=== PATIENT | female | born 1950 | race African-American/Black ===

== ENCOUNTER 2020-03-22 10:18 | Inpatient (IN) ==
[2020-03-22] MEDS ORDERED: cefTRIAXone 1,000 MG in SODIUM CHLORIDE 0.9% 100 ML IV STA (11:10)
[2020-03-22] MEDS ORDERED: SODIUM CHLORIDE 0.9% 1,000 ML IV STA (11:10)
[2020-03-22] MEDS ORDERED: cefTRIAXone 1,000 MG in SYRINGE 1 EACH IV STA (11:13)
[2020-03-22 11:23] LABS: Basophils % 0.2 % (0.0-0.8); Eosinophils # 0.2 10*3/uL (0.0-0.87); Eosinophils % 1.7 % (0.00-10.9); Hematocrit 35.1 VOL% (35.7-47.0); Hemoglobin 12.6 GM/DL (12.0-16.0); Immature Granulocytes % 0.6 %; Immature Granulocytes Absolute 0.07 #; Lymphocytes # 0.8 10*3/uL (1.4-4.0); Lymphocytes % 6.3 % (21.3-54.2); Mean Corpuscular HGB Conc 35.9 GM/DL (32-36); Mean Platelet Volume 11.5 FL (9.6-12.0); Monocytes % 4.9 % (1.7-12.7); Neutrophils % 86.3 % (38.7-73.9); Platelet Count 170 T/CUMM (130-400); Red Cell Distribution Width 14.2 % (9.3-17.3); White Blood Count 12.1 T/CUMM (4-12)
[2020-03-22 11:42] LABS: Amorphous Crystals,Urine Occasional /HPF (Few); Bacteria,Urine Occasional /HPF (Few); Bilirubin,Urine Small mg/dL (Negative); Blood, Urine Small mg/dL (Negative); Glucose,Urine (UA) Negative (Negative); Granular Casts,Urine 8 /LPF (0-1); Hyaline Casts,Urine 8 /LPF (0-3); Ketones,Urine 20 mg/dL (Negative); Mucus,Urine Few /LPF (Occasional); Nitrite,Urine Negative (Negative); Protein,Urine 100 MG/DL; RBC,Urine 3 /HPF (0-4); Squamous Epithelial Cell,Urine Occasional /HPF (0-10); Urine Appearance CLOUDY (Clear); Urine Color Amber (Yellow); Urine Specific Gravity 1.023 (1.001-1.035)
[2020-03-22 11:43] LABS: Band Neutrophils 7 % (0-10); Eosinophils 4 % (0-10); Hypochromasia 1+; Lymphocytes 9 % (20-55); Segmented Neutrophils 73 % (50-85); Total Cells Counted 100
[2020-03-22 11:44] LABS: Microcytosis 1+
[2020-03-22 11:55] LABS: Albumin 2.5 G/DL (3.4-5.0); Calcium 8.8 MG/DL (8.5-10.1); Osmolality,Calculated 267.5 MOS/KG (273-304); Total Protein 8.1 G/DL (6.4-8.3)
[2020-03-22] MEDS ORDERED: GLUCAGON 1 MG VIAL IM PRN (14:57)
[2020-03-22] MEDS ORDERED: SODIUM CHLORIDE 0.9% 2,000 ML IV ONE (14:57)
[2020-03-22] MEDS ORDERED: DEXTROSE 50% 25 GM/50 ML VIAL IV PRN (14:57)
[2020-03-22] MEDS ORDERED: DOCUSATE SODIUM 100 MG CAPSULE PO PRN (14:57)
[2020-03-22] MEDS ORDERED: ONDANSETRON 4 MG/2 ML VIAL IV PRN (14:57)
[2020-03-22] MEDS ORDERED: ACETAMINOPHEN 500 MG TABLET PO STA (15:02)
[2020-03-22] MEDS ORDERED: ACETAMINOPHEN 500 MG TABLET ONE (15:03)
[2020-03-22] MEDS: PIPERACILLIN/TAZOBACTAM 3,375 MG in SODIUM CHLORIDE 0.9% 100 ML IV SCH (16:52)
[2020-03-22] MEDS ORDERED: SODIUM CHLORIDE 0.9% 3,050 ML IV ONE (17:50)
[2020-03-22 18:06] LABS: Basophils % 0.2 % (0.0-0.8); Eosinophils # 0.2 10*3/uL (0.0-0.87); Eosinophils % 1.5 % (0.00-10.9); Hematocrit 31.9 VOL% (35.7-47.0); Hemoglobin 11.4 GM/DL (12.0-16.0); Immature Granulocytes % 0.5 %; Immature Granulocytes Absolute 0.07 #; Lymphocytes # 0.7 10*3/uL (1.4-4.0); Lymphocytes % 5.7 % (21.3-54.2); Mean Corpuscular HGB Conc 35.7 GM/DL (32-36); Mean Platelet Volume 12.2 FL (9.6-12.0); Monocytes % 4.6 % (1.7-12.7); Neutrophils % 87.5 % (38.7-73.9); Platelet Count 147 T/CUMM (130-400); Red Blood Count 4.09 MC/CUMM (3.8-5.5); Red Cell Distribution Width 14.3 % (9.3-17.3); White Blood Count 12.9 T/CUMM (4-12)
[2020-03-22 18:35] LABS: Albumin 2.3 G/DL (3.4-5.0); Bilirubin,Total 1.7 MG/DL (0.2-1.0); Calcium 8.4 MG/DL (8.5-10.1); Osmolality,Calculated 273.1 MOS/KG (273-304); Total Protein 7.4 G/DL (6.4-8.3)
[2020-03-22 18:58] LABS: Band Neutrophils 4 % (0-10); Eosinophils 4 % (0-10); Lymphocytes 10 % (20-55); Segmented Neutrophils 80 % (50-85); Total Cells Counted 100
[2020-03-22 18:59] LABS: Burr Cells 1+; Microcytosis 1+
[2020-03-22 19:00] LABS: Platelet Estimate Decreased
[2020-03-22 19:02] LABS: Toxic Granulation 1+
[2020-03-22] MEDS: SODIUM CHLORIDE 0.9% 1,000 ML IV SCH ×2 (19:50→22:59)
[2020-03-22] MEDS: ENOXAPARIN 40 MG/0.4 ML SYRINGE SUBCUT SCH (21:19)
[2020-03-22] MEDS: ACETAMINOPHEN 325 MG TABLET PO PRN (21:19)
[2020-03-23] MEDS: PIPERACILLIN/TAZOBACTAM 3,375 MG in SODIUM CHLORIDE 0.9% 100 ML IV SCH ×3 (01:35→18:05)
[2020-03-23] MEDS: ACETAMINOPHEN 325 MG TABLET PO PRN ×3 (02:18→23:15)
[2020-03-23 02:28] LABS: Amorphous Crystals,Urine Few /HPF (Few); Bilirubin,Urine Negative (Negative); Blood, Urine Moderate mg/dL (Negative); Glucose,Urine (UA) Negative (Negative); Hyaline Casts,Urine 3 /LPF (0-3); Ketones,Urine 5 mg/dL (Negative); Mucus,Urine Occasional /LPF (Occasional); Nitrite,Urine Negative (Negative); Protein,Urine 100 MG/DL; RBC,Urine 6 /HPF (0-4); Squamous Epithelial Cell,Urine Occasional /HPF (0-10); Urine Appearance CLOUDY (Clear); Urine Color Amber (Yellow); Urine Urobilinogen < 2.0 EU/DL (0.2-1.0); WBC,Urine 1 /HPF (0-6)
[2020-03-23] MEDS: SODIUM CHLORIDE 0.9% 1,000 ML IV SCH ×5 (04:10→23:14)
[2020-03-23 05:48] LABS: Basophils % 0.3 % (0.0-0.8); Eosinophils # 0.3 10*3/uL (0.0-0.87); Eosinophils % 2.2 % (0.00-10.9); Hematocrit 32.4 VOL% (35.7-47.0); Hemoglobin 11.5 GM/DL (12.0-16.0); Immature Granulocytes % 1.8 %; Immature Granulocytes Absolute 0.23 #; Lymphocytes # 0.6 10*3/uL (1.4-4.0); Lymphocytes % 4.9 % (21.3-54.2); Mean Corpuscular HGB Conc 35.5 GM/DL (32-36); Mean Corpuscular Volume 78.3 FL (87-102); Mean Platelet Volume 12.2 FL (9.6-12.0); Monocytes % 2.2 % (1.7-12.7); Neutrophils % 88.6 % (38.7-73.9); Platelet Count 148 T/CUMM (130-400); Red Blood Count 4.14 MC/CUMM (3.8-5.5); Red Cell Distribution Width 14.4 % (9.3-17.3); White Blood Count 13.1 T/CUMM (4-12)
[2020-03-23 06:02] LABS: Calcium 8.3 MG/DL (8.5-10.1)
[2020-03-23 06:12] LABS: Bilirubin,Total 2.1 MG/DL (0.2-1.0); Calcium 8.2 MG/DL (8.5-10.1); Osmolality,Calculated 277.7 MOS/KG (273-304); Risk Ratio 5.56; Thyroid Stimulating Hormone 0.925 uIU/ml (0.358-3.74); Total Protein 6.9 G/DL (6.4-8.3); VLDL CHOLESTEROL 23.4 MG/DL
[2020-03-23 06:23] LABS: Band Neutrophils 7 % (0-10); Eosinophils 8 % (0-10); Hypochromasia 1+; Lymphocytes 8 % (20-55); Microcytosis 1+; Segmented Neutrophils 73 % (50-85); Total Cells Counted 100
[2020-03-23 06:24] LABS: Burr Cells Few; Ovalocytes Slight; Platelet Estimate Adequate
[2020-03-23] MEDS ORDERED: MAGNESIUM SULF RIDER 4 GM in PREMIX 1 EACH IV PRN (07:00)
[2020-03-23] MEDS: PANTOPRAZOLE 40 MG TABLET PO SCH (09:39)
[2020-03-23] MEDS: POTASSIUM CHLORIDE 20 MEQ TABLET PO PRN ×3 (09:39→14:35)
[2020-03-23] MEDS: ASCORBIC ACID 500 MG TABLET PO SCH (09:39)
[2020-03-23] MEDS: MAGNESIUM SULF RIDER 2 GM in PREMIX 1 EACH IV PRN (09:39)
[2020-03-23] MEDS ORDERED: methylPREDNISolone SOD SUC 125 MG/2 ML VIAL IV ONE (10:11)
[2020-03-23] MEDS: PHENOL 1.4% THROAT SPRAY 177 ML BOTTLE PO PRN (14:36)
[2020-03-23] MEDS: ENOXAPARIN 40 MG/0.4 ML SYRINGE SUBCUT SCH (23:17)
[2020-03-24] MEDS: PIPERACILLIN/TAZOBACTAM 3,375 MG in SODIUM CHLORIDE 0.9% 100 ML IV SCH (03:00)
[2020-03-24] MEDS: PHENOL 1.4% THROAT SPRAY 177 ML BOTTLE PO PRN (06:09)
[2020-03-24 06:51] LABS: Basophils # 0.1 10*3/uL (0.0-0.2); Basophils % 0.3 % (0.0-0.8); Eosinophils % 0.1 % (0.00-10.9); Hematocrit 36.7 VOL% (35.7-47.0); Hemoglobin 12.9 GM/DL (12.0-16.0); Immature Granulocytes Absolute 1.26 #; Lymphocytes # 0.8 10*3/uL (1.4-4.0); Lymphocytes % 3.6 % (21.3-54.2); Mean Corpuscular HGB Conc 35.1 GM/DL (32-36); Mean Corpuscular Volume 78.8 FL (87-102); Mean Platelet Volume 12.5 FL (9.6-12.0); Monocytes % 1.6 % (1.7-12.7); Neutrophils % 88.4 % (38.7-73.9); Platelet Count 192 T/CUMM (130-400); Red Blood Count 4.66 MC/CUMM (3.8-5.5); White Blood Count 21.1 T/CUMM (4-12)
[2020-03-24 07:19] LABS: Calcium 9.2 MG/DL (8.5-10.1); Osmolality,Calculated 289.4 MOS/KG (273-304); Total Protein 7.8 G/DL (6.4-8.3)
[2020-03-24 07:48] LABS: Calcium 8.7 MG/DL (8.5-10.1); Osmolality,Calculated 293.1 MOS/KG (273-304)
[2020-03-24] MEDS ORDERED: FUROSEMIDE 20 MG/2 ML VIAL IV ONE (07:56)
[2020-03-24] MEDS ORDERED: SODIUM POLYSTYRENE SULFATE 15 GM/60 ML BOTTLE PO STA (08:08)
[2020-03-24 08:29] LABS: ABG HCO3 15.1 MMOL/L (20-26); ABG Oxygen Saturation 95.3 % (95-100); ABG PCO2 22.4 MM HG (35-48); ABG PH 7.344 (7.35-7.45); ABG PO2 81.8 MM HG (80-95); ABG TCO2 10.8 MMOL/L (23-27)
[2020-03-24 08:30] LABS: Allen Test Positive
[2020-03-24] MEDS: SODIUM CHLORIDE 0.9% 1,000 ML IV SCH ×4 (08:54→18:36)
[2020-03-24 09:09] LABS: Band Neutrophils 10 % (0-10); Lymphocytes 3 % (20-55); Nucleated Red Blood Cells 1 (0-5); Platelet Estimate Normal; Segmented Neutrophils 86 % (50-85); Total Cells Counted 100
[2020-03-24 09:10] LABS: Acanthocytes 2+; Anisocytosis 1+; Hypochromasia 1+; Microcytosis 1+; Ovalocytes Few; Target Cells 1+
[2020-03-24] MEDS: PANTOPRAZOLE 40 MG TABLET PO SCH (09:10)
[2020-03-24] MEDS: ASCORBIC ACID 500 MG TABLET PO SCH (09:10)
[2020-03-24] MEDS ORDERED: SODIUM CHLORIDE 0.9% 500 ML IV ONE ×2 (09:25→12:55)
[2020-03-24] MEDS: MEROPENEM 500 MG in SODIUM CHLORIDE 0.9% 100 ML IV SCH ×3 (10:41→18:44)
[2020-03-24] MEDS: ACETAMINOPHEN 325 MG TABLET PO PRN (13:35)
[2020-03-24] MEDS: SODIUM BICARB INJ 100 MEQ in DEXTROSE 5% 1,000 ML IV SCH ×2 (14:17→20:47)
[2020-03-24 14:50] LABS: Calcium 8.9 MG/DL (8.5-10.1); Osmolality,Calculated 288.5 MOS/KG (273-304)
[2020-03-24] MEDS: MORPHINE 4 MG/1 ML VIAL IV PRN (15:12)
[2020-03-24] MEDS ORDERED: SODIUM CHLORIDE 0.9% 250 ML IV ONE (15:59)
[2020-03-24] MEDS ORDERED: SODIUM CHLORIDE 0.9% 1,000 ML IV ONE ×2 (17:08→23:01)
[2020-03-24] MEDS ORDERED: SODIUM BICARBONATE 50 MEQ/50 ML VIAL IV ONE ×2 (17:08→17:09)
[2020-03-24] MEDS ORDERED: NOREPINEPHRINE 4 MG/4 ML VIAL IV ONE (17:18)
[2020-03-24] MEDS: NOREPINEPHRINE 8 MG in SODIUM CHLORIDE 0.9% 242 ML IV PRN ×2 (17:25→22:20)
[2020-03-24 17:57] LABS: Calcium 8.2 MG/DL (8.5-10.1); Osmolality,Calculated 298.1 MOS/KG (273-304)
[2020-03-24] MEDS ORDERED: VANCOMYCIN INJ 1,500 MG in SODIUM CHLORIDE 0.9% 500 ML IV SCH (18:00)
[2020-03-24] MEDS: ENOXAPARIN 40 MG/0.4 ML SYRINGE SUBCUT SCH (20:46)
[2020-03-24] MEDS ORDERED: PHENYLEPHRINE DRIP 40 MG/250 ML PREMIX IV PRN (23:02)
[2020-03-25 00:54] LABS: Basophils # 0.1 10*3/uL (0.0-0.2); Basophils % 0.4 % (0.0-0.8); Eosinophils % 0.1 % (0.00-10.9); Hematocrit 33.4 VOL% (35.7-47.0); Hemoglobin 11.6 GM/DL (12.0-16.0); Immature Granulocytes % 1.8 %; Immature Granulocytes Absolute 0.59 #; Lymphocytes # 1.9 10*3/uL (1.4-4.0); Lymphocytes % 5.6 % (21.3-54.2); Mean Corpuscular HGB Conc 34.7 GM/DL (32-36); Mean Corpuscular Volume 80.1 FL (87-102); Mean Platelet Volume 12.6 FL (9.6-12.0); Monocytes % 2.8 % (1.7-12.7); NRBC # 0.15 10*3/uL; Neutrophils % 89.3 % (38.7-73.9); Platelet Count 220 T/CUMM (130-400); Red Blood Count 4.17 MC/CUMM (3.8-5.5); Red Cell Distribution Width 15.8 % (9.3-17.3); White Blood Count 33.1 T/CUMM (4-12)
[2020-03-25 01:14] LABS: Albumin 1.8 G/DL (3.4-5.0); Bilirubin,Total 0.9 MG/DL (0.2-1.0); Total Protein 7.1 G/DL (6.4-8.3)
[2020-03-25 01:21] LABS: Calcium 8.2 MG/DL (8.5-10.1); Osmolality,Calculated 295.4 MOS/KG (273-304)
[2020-03-25] MEDS: MEROPENEM 500 MG in SODIUM CHLORIDE 0.9% 100 ML IV SCH ×3 (01:45→17:06)
[2020-03-25] MEDS: NOREPINEPHRINE 8 MG in SODIUM CHLORIDE 0.9% 242 ML IV PRN ×5 (01:57→18:30)
[2020-03-25 03:00] LABS: Band Neutrophils 7 % (0-10); Lymphocytes 2 % (20-55); Platelet Estimate Normal; Segmented Neutrophils 89 % (50-85); Total Cells Counted 100
[2020-03-25 03:01] LABS: Microcytosis 1+; Polychromasia Slight; Target Cells Few
[2020-03-25 03:02] LABS: Burr Cells 1+
[2020-03-25 03:03] LABS: Hypochromasia Slight
[2020-03-25] MEDS: SODIUM BICARB INJ 100 MEQ in DEXTROSE 5% 1,000 ML IV SCH ×3 (05:05→21:30)
[2020-03-25] MEDS: SODIUM CHLORIDE 0.9% 1,000 ML IV SCH ×3 (07:40→20:55)
[2020-03-25] MEDS ORDERED: ETOMIDATE 20 MG/10 ML VIAL IV ONE ×2 (08:05→08:10)
[2020-03-25] MEDS ORDERED: SUCCINYLCHOLINE 200 MG/10 ML VIAL ONE (08:06)
[2020-03-25] MEDS ORDERED: SUCCINYLCHOLINE 200 MG/10 ML VIAL IV ONE (08:13)
[2020-03-25] MEDS ORDERED: MIDAZOLAM 10 MG/2 ML VIAL ONE ×2 (08:27→09:05)
[2020-03-25] MEDS ORDERED: MIDAZOLAM 10 MG/2 ML VIAL IV ONE (08:35)
[2020-03-25] MEDS: PANTOPRAZOLE 40 MG TABLET PO SCH (08:38)
[2020-03-25] MEDS: ASCORBIC ACID 500 MG TABLET PO SCH (08:38)
[2020-03-25 10:06] LABS: ABG Base Excess -11.3 MMOL/L (-2.5-2.5); ABG HCO3 15.6 MMOL/L (20-26); ABG Oxygen Saturation 99.6 % (95-100); ABG PH 7.295 (7.35-7.45); ABG TCO2 12.7 MMOL/L (23-27)
[2020-03-25] MEDS ORDERED: SODIUM CHLORIDE 0.9% 2,000 ML IV ONE (11:10)
[2020-03-25] MEDS: HYDROCORTISONE 100 MG VIAL IV SCH ×2 (12:35→21:40)
[2020-03-25 15:51] LABS: ABG Base Excess -11.2 MMOL/L (-2.5-2.5); ABG HCO3 15.6 MMOL/L (20-26); ABG Oxygen Saturation 99.5 % (95-100); ABG PH 7.411 (7.35-7.45); ABG TCO2 11.1 MMOL/L (23-27)
[2020-03-25] MEDS ORDERED: SODIUM CHLORIDE 0.9% 500 ML IV ONE (18:21)
[2020-03-25] MEDS: ENOXAPARIN 40 MG/0.4 ML SYRINGE SUBCUT SCH (21:41)
[2020-03-26] MEDS: NOREPINEPHRINE 8 MG in SODIUM CHLORIDE 0.9% 242 ML IV PRN ×4 (00:05→21:52)
[2020-03-26 00:16] LABS: CKMB % 10.6 %
[2020-03-26 00:17] LABS: Troponin I 10.8 NG/ML (0.00-0.045)
[2020-03-26] MEDS: MORPHINE 4 MG/1 ML VIAL IV PRN ×2 (00:34→12:57)
[2020-03-26] MEDS ORDERED: ENOXAPARIN 80 MG/0.8 ML SYRINGE SUBCUT ONE (01:00)
[2020-03-26] MEDS: MEROPENEM 500 MG in SODIUM CHLORIDE 0.9% 100 ML IV SCH ×3 (01:36→17:50)
[2020-03-26 02:51] LABS: Troponin I 17.9 NG/ML (0.00-0.045)
[2020-03-26] MEDS: SODIUM BICARB INJ 100 MEQ in DEXTROSE 5% 1,000 ML IV SCH ×2 (02:53→13:40)
[2020-03-26 05:14] LABS: ABG Base Excess -7.4 MMOL/L (-2.5-2.5); ABG HCO3 18.5 MMOL/L (20-26); ABG Oxygen Saturation 99.4 % (95-100); ABG PH 7.505 (7.35-7.45); ABG TCO2 11.7 MMOL/L (23-27)
[2020-03-26 05:15] LABS: ABG PCO2 17.2 MM HG (35-48)
[2020-03-26] MEDS: SODIUM CHLORIDE 0.9% 1,000 ML IV SCH ×3 (05:15→22:30)
[2020-03-26 05:20] LABS: Basophils # 0.1 10*3/uL (0.0-0.2); Basophils % 0.3 % (0.0-0.8); Eosinophils # 0.1 10*3/uL (0.0-0.87); Eosinophils % 0.4 % (0.00-10.9); Immature Granulocytes % 4.2 %; Immature Granulocytes Absolute 1.09 #; Lymphocytes # 1.5 10*3/uL (1.4-4.0); Lymphocytes % 5.7 % (21.3-54.2); Mean Corpuscular HGB Conc 36.9 GM/DL (32-36); Mean Corpuscular Volume 74.3 FL (87-102); Mean Platelet Volume 12.5 FL (9.6-12.0); Monocytes % 1.2 % (1.7-12.7); NRBC # 0.33 10*3/uL; Neutrophils % 88.2 % (38.7-73.9); Platelet Count 202 T/CUMM (130-400); Red Cell Distribution Width 14.3 % (9.3-17.3); White Blood Count 25.8 T/CUMM (4-12)
[2020-03-26 05:29] LABS: Hemoglobin 9.6 GM/DL (12.0-16.0)
[2020-03-26] MEDS: HYDROCORTISONE 100 MG VIAL IV SCH ×3 (05:40→22:00)
[2020-03-26 05:44] LABS: CKMB % 10.1 %
[2020-03-26 05:45] LABS: Troponin I 20.9 NG/ML (0.00-0.045)
[2020-03-26 05:51] LABS: Burr Cells Slight; Eosinophils 1 % (0-10); Hypochromasia 1+; Lymphocytes 8 % (20-55); Nucleated Red Blood Cells 2 (0-5); Ovalocytes Slight; Platelet Estimate Adequate; Segmented Neutrophils 88 % (50-85); Total Cells Counted 100
[2020-03-26 05:52] LABS: Microcytosis 1+
[2020-03-26 05:53] LABS: Albumin 1.4 G/DL (3.4-5.0); Bilirubin,Direct 1.16 MG/DL (0.0-0.20); Bilirubin,Indirect 0.3 MG/DL (0.0-1.0); Bilirubin,Total 1.5 MG/DL (0.2-1.0); Calcium 7.9 MG/DL (8.5-10.1); Osmolality,Calculated 308.8 MOS/KG (273-304); Total Protein 6.1 G/DL (6.4-8.3)
[2020-03-26] MEDS: ENOXAPARIN 120 MG/0.8 ML SYRINGE SUBCUT SCH ×2 (08:55→22:00)
[2020-03-26] MEDS: LEVOFLOXACIN INJ 750 MG in PREMIX 1 EACH IV SCH (08:55)
[2020-03-26] MEDS: ASCORBIC ACID 500 MG TABLET PO SCH (08:55)
[2020-03-26] MEDS: PANTOPRAZOLE 40 MG VIAL IV SCH (08:55)
[2020-03-26 08:57] LABS: CKMB % 9.5 %
[2020-03-26 09:05] LABS: Troponin I 22.5 NG/ML (0.00-0.045)
[2020-03-26] MEDS: POTASSIUM CHLORIDE 20 MEQ/15 ML UDCUP NG SCH ×3 (09:22→13:30)
[2020-03-26] MEDS ORDERED: MAGNESIUM SULF RIDER 2 GM in PREMIX 1 EACH IV PRN (17:37)
[2020-03-26] MEDS ORDERED: POTASSIUM CHLORIDE RIDER 10 MEQ in PREMIX 1 EACH IV PRN (17:37)
[2020-03-27] MEDS: SODIUM BICARB INJ 100 MEQ in DEXTROSE 5% 1,000 ML IV SCH ×3 (00:02→11:02)
[2020-03-27 04:11] LABS: ABG Base Excess -7.5 MMOL/L (-2.5-2.5); ABG HCO3 13.4 MMOL/L (20-26); ABG Oxygen Saturation 98.2 % (95-100); ABG PH 7.521 (7.35-7.45); ABG TCO2 13.9 MMOL/L (23-27)
[2020-03-27 04:14] LABS: Basophils # 0.1 10*3/uL (0.0-0.2); Basophils % 0.3 % (0.0-0.8); Eosinophils # 0.1 10*3/uL (0.0-0.87); Eosinophils % 0.3 % (0.00-10.9); Hematocrit 25.6 VOL% (35.7-47.0); Hemoglobin 9.7 GM/DL (12.0-16.0); Immature Granulocytes % 8.9 %; Lymphocytes # 2.1 10*3/uL (1.4-4.0); Lymphocytes % 8.8 % (21.3-54.2); Mean Corpuscular HGB Conc 37.9 GM/DL (32-36); Mean Corpuscular Volume 74.4 FL (87-102); Mean Platelet Volume 12.7 FL (9.6-12.0); Monocytes % 1.4 % (1.7-12.7); NRBC # 0.68 10*3/uL; Neutrophils % 80.3 % (38.7-73.9); Platelet Count 166 T/CUMM (130-400); Red Blood Count 3.44 MC/CUMM (3.8-5.5); Red Cell Distribution Width 14.6 % (9.3-17.3); White Blood Count 23.5 T/CUMM (4-12)
[2020-03-27 04:20] LABS: Calcium 7.5 MG/DL (8.5-10.1); Osmolality,Calculated 315.8 MOS/KG (273-304)
[2020-03-27] MEDS: MEROPENEM 500 MG in SODIUM CHLORIDE 0.9% 100 ML IV SCH ×3 (04:30→19:21)
[2020-03-27 04:36] LABS: ABG PCO2 16.7 MM HG (35-48)
[2020-03-27] MEDS: HYDROCORTISONE 100 MG VIAL IV SCH ×3 (04:38→21:50)
[2020-03-27 04:41] LABS: Band Neutrophils 5 % (0-10); Burr Cells Slight; Hypochromasia Slight; Lymphocytes 5 % (20-55); Microcytosis 1+; Nucleated Red Blood Cells 9 (0-5); Ovalocytes Slight; Platelet Estimate Adequate; Segmented Neutrophils 88 % (50-85); Total Cells Counted 100
[2020-03-27] MEDS: NOREPINEPHRINE 8 MG in SODIUM CHLORIDE 0.9% 242 ML IV PRN ×3 (06:15→21:00)
[2020-03-27] MEDS: SODIUM CHLORIDE 0.9% 1,000 ML IV SCH ×3 (06:30→23:32)
[2020-03-27] MEDS ORDERED: ENOXAPARIN 120 MG/0.8 ML SYRINGE SUBCUT SCH (09:00)
[2020-03-27 09:22] LABS: CKMB % 5.5 %
[2020-03-27 09:23] LABS: Troponin I 6.67 NG/ML (0.00-0.045)
[2020-03-27] MEDS: LEVOFLOXACIN INJ 750 MG in PREMIX 1 EACH IV SCH (10:10)
[2020-03-27] MEDS: ASPIRIN CHEW 81 MG TABLET PO SCH (10:10)
[2020-03-27] MEDS: PANTOPRAZOLE 40 MG VIAL IV SCH (10:11)
[2020-03-27] MEDS: ASCORBIC ACID 500 MG TABLET PO SCH (10:12)
[2020-03-27] MEDS ORDERED: INSULIN GLARGINE 100 UNIT/ML SUBCUT SCH (12:00)
[2020-03-27] MEDS ORDERED: VERAPAMIL 5 MG/2 ML VIAL ONE (12:35)
[2020-03-27] MEDS ORDERED: NITROGLYCERIN DRIP 50 MG/250 ML BOTTLE IV ONE (12:35)
[2020-03-27] MEDS ORDERED: NOREPINEPHRINE 4 MG/4 ML VIAL IV ONE (13:23)
[2020-03-27] MEDS: INSULIN LISPRO 100 UNIT/ML SUBCUT SCH ×3 (14:00→19:29)
[2020-03-27] MEDS ORDERED: CLOPIDOGREL 300 MG TABLET PO ONE (14:33)
[2020-03-28] MEDS: INSULIN LISPRO 100 UNIT/ML SUBCUT SCH ×6 (01:26→20:23)
[2020-03-28] MEDS: MEROPENEM 500 MG in SODIUM CHLORIDE 0.9% 100 ML IV SCH ×3 (01:34→17:01)
[2020-03-28] MEDS: NOREPINEPHRINE 8 MG in SODIUM CHLORIDE 0.9% 242 ML IV PRN ×3 (03:20→18:58)
[2020-03-28 05:01] LABS: ABG Base Excess -4.7 MMOL/L (-2.5-2.5); ABG PO2 150.4 MM HG (80-95); ABG TCO2 16.6 MMOL/L (23-27)
[2020-03-28 05:05] LABS: ABG PCO2 19.2 MM HG (35-48)
[2020-03-28] MEDS: SODIUM BICARB INJ 100 MEQ in DEXTROSE 5% 1,000 ML IV SCH (05:07)
[2020-03-28 05:28] LABS: Calcium 7.5 MG/DL (8.5-10.1); Osmolality,Calculated 312.8 MOS/KG (273-304)
[2020-03-28 05:31] LABS: Basophils # 0.2 10*3/uL (0.0-0.2); Basophils % 0.6 % (0.0-0.8); Eosinophils # 0.1 10*3/uL (0.0-0.87); Eosinophils % 0.3 % (0.00-10.9); Immature Granulocytes % 12.1 %; Immature Granulocytes Absolute 3.25 #; Lymphocytes # 1.9 10*3/uL (1.4-4.0); Lymphocytes % 7.1 % (21.3-54.2); Mean Corpuscular HGB Conc 38.8 GM/DL (32-36); Mean Corpuscular Volume 73.4 FL (87-102); Mean Platelet Volume 12.3 FL (9.6-12.0); Monocytes % 1.9 % (1.7-12.7); NRBC # 1.55 10*3/uL; Platelet Count 142 T/CUMM (130-400); Red Blood Count 3.54 MC/CUMM (3.8-5.5); Red Cell Distribution Width 14.1 % (9.3-17.3); White Blood Count 26.9 T/CUMM (4-12)
[2020-03-28 05:33] LABS: Hemoglobin 10.1 GM/DL (12.0-16.0)
[2020-03-28] MEDS: HYDROCORTISONE 100 MG VIAL IV SCH ×3 (06:00→20:23)
[2020-03-28 06:19] LABS: Eosinophils 1 % (0-10); Lymphocytes 3 % (20-55); Total Cells Counted 100
[2020-03-28 06:20] LABS: Anisocytosis 1+; Band Neutrophils 3 % (0-10); Hypochromasia 3+; Macrocytosis 1+; Metamyelocytes 3 %; Myelocytes 1 %; Nucleated Red Blood Cells 9 (0-5); Platelet Estimate Adequate; Segmented Neutrophils 84 % (50-85); Target Cells 1+
[2020-03-28] MEDS ORDERED: FUROSEMIDE 40 MG/4 ML VIAL IV ONE (07:26)
[2020-03-28] MEDS ORDERED: INSULIN GLARGINE 100 UNIT/ML SUBCUT SCH (09:00)
[2020-03-28] MEDS: ENOXAPARIN 40 MG/0.4 ML SYRINGE SUBCUT SCH (09:10)
[2020-03-28] MEDS: PANTOPRAZOLE 40 MG VIAL IV SCH (09:10)
[2020-03-28] MEDS: LEVOFLOXACIN INJ 750 MG in PREMIX 1 EACH IV SCH (09:12)
[2020-03-28] MEDS: ASPIRIN CHEW 81 MG TABLET PO SCH (09:12)
[2020-03-28] MEDS: ASCORBIC ACID 500 MG TABLET PO SCH (09:12)
[2020-03-28] MEDS: CLOPIDOGREL 75 MG TABLET PO SCH (09:12)
[2020-03-28] MEDS ORDERED: INSULIN GLARGINE 100 UNIT/ML SUBCUT ONE (09:38)
[2020-03-28] MEDS: POTASSIUM CHLORIDE 20 MEQ/15 ML UDCUP PER TUBE SCH ×2 (16:52→20:23)
[2020-03-28] MEDS: FUROSEMIDE 40 MG/4 ML VIAL IV SCH (16:52)
[2020-03-29] MEDS: INSULIN LISPRO 100 UNIT/ML SUBCUT SCH ×6 (00:34→20:45)
[2020-03-29] MEDS: POTASSIUM CHLORIDE 20 MEQ/15 ML UDCUP PER TUBE SCH (00:35)
[2020-03-29] MEDS: MEROPENEM 500 MG in SODIUM CHLORIDE 0.9% 100 ML IV SCH ×3 (01:27→18:07)
[2020-03-29] MEDS: HYDROCORTISONE 100 MG VIAL IV SCH ×3 (04:48→20:45)
[2020-03-29 04:58] LABS: ABG Base Excess -0.1 MMOL/L (-2.5-2.5); ABG Oxygen Saturation 97.4 % (95-100); ABG PCO2 27.7 MM HG (35-48); ABG PH 7.518 (7.35-7.45); ABG TCO2 22.9 MMOL/L (23-27)
[2020-03-29 05:14] LABS: Basophils # 0.1 10*3/uL (0.0-0.2); Basophils % 0.4 % (0.0-0.8); Eosinophils # 0.1 10*3/uL (0.0-0.87); Eosinophils % 0.4 % (0.00-10.9); Hematocrit 26.8 VOL% (35.7-47.0); Hemoglobin 10.1 GM/DL (12.0-16.0); Immature Granulocytes % 9.1 %; Immature Granulocytes Absolute 2.87 #; Lymphocytes # 1.8 10*3/uL (1.4-4.0); Lymphocytes % 5.7 % (21.3-54.2); Mean Corpuscular HGB Conc 37.7 GM/DL (32-36); Mean Corpuscular Volume 74.9 FL (87-102); Mean Platelet Volume 12.1 FL (9.6-12.0); Monocytes % 1.7 % (1.7-12.7); NRBC # 2.28 10*3/uL; Neutrophils % 82.7 % (38.7-73.9); Platelet Count 158 T/CUMM (130-400); Red Blood Count 3.58 MC/CUMM (3.8-5.5); Red Cell Distribution Width 13.8 % (9.3-17.3); White Blood Count 31.4 T/CUMM (4-12)
[2020-03-29 05:33] LABS: Calcium 7.6 MG/DL (8.5-10.1); Osmolality,Calculated 318.9 MOS/KG (273-304)
[2020-03-29 05:42] LABS: Troponin I 2.32 NG/ML (0.00-0.045)
[2020-03-29 05:52] LABS: Band Neutrophils 1 % (0-10); Hypochromasia 1+; Lymphocytes 7 % (20-55); Metamyelocytes 1 %; Nucleated Red Blood Cells 7 (0-5); Segmented Neutrophils 90 % (50-85); Smudge Cells Few; Total Cells Counted 100
[2020-03-29 05:53] LABS: Microcytosis 1+; Ovalocytes Slight; Polychromasia Slight; Target Cells 1+
[2020-03-29 05:54] LABS: Platelet Estimate Adequate
[2020-03-29] MEDS: ENOXAPARIN 40 MG/0.4 ML SYRINGE SUBCUT SCH (08:08)
[2020-03-29] MEDS: INSULIN GLARGINE 100 UNIT/ML SUBCUT SCH (08:09)
[2020-03-29] MEDS: FUROSEMIDE 40 MG/4 ML VIAL IV SCH ×2 (08:09→16:15)
[2020-03-29] MEDS: CLOPIDOGREL 75 MG TABLET PO SCH (08:10)
[2020-03-29] MEDS: ASCORBIC ACID 500 MG TABLET PO SCH (08:10)
[2020-03-29] MEDS: LEVOFLOXACIN INJ 750 MG in PREMIX 1 EACH IV SCH (08:10)
[2020-03-29] MEDS: ASPIRIN CHEW 81 MG TABLET PO SCH (08:10)
[2020-03-29] MEDS: PANTOPRAZOLE 40 MG VIAL IV SCH (08:11)
[2020-03-29] MEDS: NOREPINEPHRINE 8 MG in SODIUM CHLORIDE 0.9% 242 ML IV PRN ×2 (09:08→20:47)
[2020-03-29] MEDS: DEXMEDETOMIDINE 200 MCG in SODIUM CHLORIDE 0.9% 48 ML IV PRN ×2 (12:10→17:27)
[2020-03-29] MEDS ORDERED: DEXMEDETOMIDINE 400 MCG in SODIUM CHLORIDE 0.9% 96 ML IV PRN (16:11)
[2020-03-30] MEDS: INSULIN LISPRO 100 UNIT/ML SUBCUT SCH ×6 (00:45→20:29)
[2020-03-30] MEDS: MEROPENEM 500 MG in SODIUM CHLORIDE 0.9% 100 ML IV SCH ×3 (01:07→17:45)
[2020-03-30] MEDS: DEXMEDETOMIDINE 200 MCG in SODIUM CHLORIDE 0.9% 48 ML IV PRN ×2 (01:40→04:15)
[2020-03-30] MEDS: HYDROCORTISONE 100 MG VIAL IV SCH ×3 (04:55→20:30)
[2020-03-30 04:57] LABS: ABG Base Excess 2.8 MMOL/L (-2.5-2.5); ABG HCO3 26.9 MMOL/L (20-26); ABG Oxygen Saturation 98.7 % (95-100); ABG PCO2 32.1 MM HG (35-48); ABG PH 7.509 (7.35-7.45); ABG TCO2 23.5 MMOL/L (23-27)
[2020-03-30 05:11] LABS: Basophils # 0.1 10*3/uL (0.0-0.2); Basophils % 0.2 % (0.0-0.8); Hematocrit 24.7 VOL% (35.7-47.0); Hemoglobin 9.1 GM/DL (12.0-16.0); Immature Granulocytes % 5.7 %; Lymphocytes # 1.7 10*3/uL (1.4-4.0); Lymphocytes % 7.4 % (21.3-54.2); Mean Corpuscular HGB Conc 36.8 GM/DL (32-36); Mean Corpuscular Volume 76.7 FL (87-102); Mean Platelet Volume 12.2 FL (9.6-12.0); Monocytes % 2.1 % (1.7-12.7); NRBC # 0.85 10*3/uL; Neutrophils % 84.6 % (38.7-73.9); Platelet Count 132 T/CUMM (130-400); Red Blood Count 3.22 MC/CUMM (3.8-5.5); Red Cell Distribution Width 13.8 % (9.3-17.3); White Blood Count 22.9 T/CUMM (4-12)
[2020-03-30 05:35] LABS: Calcium 7.7 MG/DL (8.5-10.1); Osmolality,Calculated 329.4 MOS/KG (273-304)
[2020-03-30 05:50] LABS: Band Neutrophils 2 % (0-10); Lymphocytes 5 % (20-55); Nucleated Red Blood Cells 5 (0-5); Segmented Neutrophils 91 % (50-85); Total Cells Counted 100
[2020-03-30 05:51] LABS: Hypochromasia 1+; Microcytosis 1+; Target Cells 1+
[2020-03-30 05:52] LABS: Platelet Estimate Adequate; Polychromasia Slight
[2020-03-30] MEDS: INSULIN GLARGINE 100 UNIT/ML SUBCUT SCH (09:05)
[2020-03-30] MEDS: LEVOFLOXACIN INJ 750 MG in PREMIX 1 EACH IV SCH (09:06)
[2020-03-30] MEDS: ASPIRIN CHEW 81 MG TABLET PO SCH (09:07)
[2020-03-30] MEDS: FUROSEMIDE 40 MG/4 ML VIAL IV SCH ×2 (09:07→17:42)
[2020-03-30] MEDS: ENOXAPARIN 40 MG/0.4 ML SYRINGE SUBCUT SCH (09:07)
[2020-03-30] MEDS: CLOPIDOGREL 75 MG TABLET PO SCH (09:07)
[2020-03-30] MEDS: PANTOPRAZOLE 40 MG VIAL IV SCH (09:11)
[2020-03-30 10:22] LABS: Albumin 1.3 G/DL (3.4-5.0); Bilirubin,Direct 0.73 MG/DL (0.0-0.20); Bilirubin,Indirect 0.3 MG/DL (0.0-1.0); Total Protein 5.5 G/DL (6.4-8.3)
[2020-03-30] MEDS ORDERED: MAGNESIUM SULF RIDER 2 GM in PREMIX 1 EACH IV ONE (11:00)
[2020-03-30] MEDS ORDERED: POTASSIUM CHLORIDE 20 MEQ TABLET PO ONE (11:00)
[2020-03-30] MEDS: ASCORBIC ACID 500 MG TABLET PO SCH (11:17)
[2020-03-30] MEDS: METOPROLOL SUCCINATE XL 25 MG TABLET PO SCH (20:32)
[2020-03-31] MEDS: INSULIN LISPRO 100 UNIT/ML SUBCUT SCH ×6 (00:12→21:15)
[2020-03-31] MEDS: MEROPENEM 500 MG in SODIUM CHLORIDE 0.9% 100 ML IV SCH ×3 (02:18→19:22)
[2020-03-31] MEDS: HYDROCORTISONE 100 MG VIAL IV SCH ×2 (03:12→15:23)
[2020-03-31 04:40] LABS: Basophils % 0.1 % (0.0-0.8); Eosinophils % 0.1 % (0.00-10.9); Hematocrit 24.1 VOL% (35.7-47.0); Hemoglobin 8.8 GM/DL (12.0-16.0); Immature Granulocytes % 3.5 %; Lymphocytes # 1.5 10*3/uL (1.4-4.0); Lymphocytes % 8.5 % (21.3-54.2); Mean Corpuscular HGB Conc 36.5 GM/DL (32-36); Mean Platelet Volume 12.1 FL (9.6-12.0); Monocytes % 2.3 % (1.7-12.7); NRBC # 0.21 10*3/uL; Neutrophils % 85.5 % (38.7-73.9); Platelet Count 132 T/CUMM (130-400); Red Blood Count 3.13 MC/CUMM (3.8-5.5); Red Cell Distribution Width 13.8 % (9.3-17.3); White Blood Count 17.3 T/CUMM (4-12)
[2020-03-31 04:59] LABS: Calcium 7.2 MG/DL (8.5-10.1); Osmolality,Calculated 311.1 MOS/KG (273-304)
[2020-03-31 07:17] LABS: Band Neutrophils 1 % (0-10); Hypochromasia Slight; Lymphocytes 5 % (20-55); Microcytosis Slight; Nucleated Red Blood Cells 3 (0-5); Platelet Estimate Normal; Segmented Neutrophils 93 % (50-85); Total Cells Counted 100
[2020-03-31] MEDS: POTASSIUM CHLORIDE 20 MEQ TABLET PO SCH ×2 (08:25→15:22)
[2020-03-31] MEDS: FUROSEMIDE 40 MG TABLET PO SCH (08:25)
[2020-03-31] MEDS: ASPIRIN CHEW 81 MG TABLET PO SCH (08:25)
[2020-03-31] MEDS: METOPROLOL SUCCINATE XL 25 MG TABLET PO SCH ×2 (08:26→21:15)
[2020-03-31] MEDS: CLOPIDOGREL 75 MG TABLET PO SCH (08:26)
[2020-03-31] MEDS: ASCORBIC ACID 500 MG TABLET PO SCH (08:27)
[2020-03-31] MEDS: INSULIN GLARGINE 100 UNIT/ML SUBCUT SCH (08:28)
[2020-03-31] MEDS: ENOXAPARIN 40 MG/0.4 ML SYRINGE SUBCUT SCH (08:29)
[2020-03-31] MEDS: PANTOPRAZOLE 40 MG VIAL IV SCH (08:29)
[2020-03-31] MEDS ORDERED: ZALEPLON 5 MG CAPSULE PO PRN (08:40)
[2020-03-31] MEDS: GABAPENTIN 300 MG CAPSULE PO SCH ×2 (10:19→21:14)
[2020-03-31] MEDS ORDERED: LORazepam 1 MG TABLET PO PRN (11:22)
[2020-03-31] MEDS: ACETAMINOPHEN 325 MG TABLET PO PRN (21:14)
[2020-04-01] MEDS: HYDROCORTISONE 100 MG VIAL IV SCH ×2 (02:18→16:46)
[2020-04-01] MEDS: MEROPENEM 500 MG in SODIUM CHLORIDE 0.9% 100 ML IV SCH (02:20)
[2020-04-01 06:24] LABS: Basophils % 0.2 % (0.0-0.8); Eosinophils % 0.2 % (0.00-10.9); Hematocrit 23.7 VOL% (35.7-47.0); Hemoglobin 8.6 GM/DL (12.0-16.0); Immature Granulocytes Absolute 0.26 #; Lymphocytes # 1.3 10*3/uL (1.4-4.0); Lymphocytes % 10.2 % (21.3-54.2); Mean Corpuscular HGB Conc 36.3 GM/DL (32-36); Mean Platelet Volume 11.9 FL (9.6-12.0); NRBC # 0.13 10*3/uL; Neutrophils % 84.4 % (38.7-73.9); Platelet Count 147 T/CUMM (130-400); Red Blood Count 3.04 MC/CUMM (3.8-5.5); Red Cell Distribution Width 13.9 % (9.3-17.3); White Blood Count 12.7 T/CUMM (4-12)
[2020-04-01 06:50] LABS: Calcium 7.2 MG/DL (8.5-10.1); Osmolality,Calculated 305.4 MOS/KG (273-304)
[2020-04-01] MEDS: INSULIN LISPRO 100 UNIT/ML SUBCUT SCH ×4 (08:26→21:28)
[2020-04-01] MEDS: ASPIRIN CHEW 81 MG TABLET PO SCH (09:58)
[2020-04-01] MEDS: METOPROLOL SUCCINATE XL 25 MG TABLET PO SCH ×2 (09:58→21:26)
[2020-04-01] MEDS: CLOPIDOGREL 75 MG TABLET PO SCH (09:58)
[2020-04-01] MEDS: GABAPENTIN 300 MG CAPSULE PO SCH ×2 (09:58→21:27)
[2020-04-01] MEDS: ASCORBIC ACID 500 MG TABLET PO SCH (09:58)
[2020-04-01] MEDS: FUROSEMIDE 40 MG TABLET PO SCH (09:58)
[2020-04-01] MEDS: ENOXAPARIN 40 MG/0.4 ML SYRINGE SUBCUT SCH (09:58)
[2020-04-01] MEDS: INSULIN GLARGINE 100 UNIT/ML SUBCUT SCH (10:40)
[2020-04-01] MEDS: PANTOPRAZOLE 40 MG VIAL IV SCH (11:28)
[2020-04-01] MEDS: POTASSIUM CHLORIDE 20 MEQ TABLET PO SCH (18:04)
[2020-04-02] MEDS: HYDROCORTISONE 100 MG VIAL IV SCH ×2 (02:52→15:13)
[2020-04-02 06:05] LABS: Calcium 6.9 MG/DL (8.5-10.1); Osmolality,Calculated 306.3 MOS/KG (273-304)
[2020-04-02] MEDS: PANTOPRAZOLE 40 MG VIAL IV SCH (08:40)
[2020-04-02] MEDS: MAGNESIUM SULF RIDER 2 GM in PREMIX 1 EACH IV PRN (08:41)
[2020-04-02] MEDS: INSULIN LISPRO 100 UNIT/ML SUBCUT SCH ×4 (09:02→20:54)
[2020-04-02] MEDS: METOPROLOL SUCCINATE XL 25 MG TABLET PO SCH ×2 (09:09→20:55)
[2020-04-02] MEDS: ASPIRIN CHEW 81 MG TABLET PO SCH (09:09)
[2020-04-02] MEDS: ENOXAPARIN 40 MG/0.4 ML SYRINGE SUBCUT SCH (09:09)
[2020-04-02] MEDS: INSULIN GLARGINE 100 UNIT/ML SUBCUT SCH (09:10)
[2020-04-02] MEDS: FUROSEMIDE 40 MG TABLET PO SCH (09:10)
[2020-04-02] MEDS: GABAPENTIN 300 MG CAPSULE PO SCH ×2 (09:10→20:55)
[2020-04-02] MEDS: CLOPIDOGREL 75 MG TABLET PO SCH (09:10)
[2020-04-02] MEDS: ASCORBIC ACID 500 MG TABLET PO SCH (09:10)
[2020-04-02] MEDS: LEVOFLOXACIN INJ 750 MG in PREMIX 1 EACH IV SCH (09:37)
[2020-04-02] MEDS: FUROSEMIDE 40 MG/4 ML VIAL IV SCH (10:29)
[2020-04-02] MEDS ORDERED: POTASSIUM CHLORIDE 20 MEQ TABLET PO ONE (11:38)
[2020-04-02] MEDS ORDERED: MAGNESIUM SULF RIDER 2 GM in PREMIX 1 EACH IV ONE (11:38)
[2020-04-02] MEDS: ALBUTEROL 0.63 MG/3 ML NEB RESP TX SCH ×2 (13:00→19:28)
[2020-04-02] MEDS: ROSUVASTATIN 20 MG TABLET PO SCH (20:54)
[2020-04-03] MEDS: ALBUTEROL 0.63 MG/3 ML NEB RESP TX SCH ×4 (01:46→19:40)
[2020-04-03] MEDS: HYDROCORTISONE 100 MG VIAL IV SCH (03:06)
[2020-04-03 06:28] LABS: Basophils % 0.1 % (0.0-0.8); Eosinophils # 0.1 10*3/uL (0.0-0.87); Eosinophils % 0.9 % (0.00-10.9); Hematocrit 24.9 VOL% (35.7-47.0); Hemoglobin 8.8 GM/DL (12.0-16.0); Immature Granulocytes % 0.9 %; Immature Granulocytes Absolute 0.08 #; Lymphocytes # 1.2 10*3/uL (1.4-4.0); Lymphocytes % 12.8 % (21.3-54.2); Mean Corpuscular HGB Conc 35.3 GM/DL (32-36); Mean Corpuscular Volume 80.6 FL (87-102); Mean Platelet Volume 11.4 FL (9.6-12.0); Monocytes % 3.3 % (1.7-12.7); NRBC # 0.03 10*3/uL; Platelet Count 190 T/CUMM (130-400); Red Blood Count 3.09 MC/CUMM (3.8-5.5); Red Cell Distribution Width 15.9 % (9.3-17.3); White Blood Count 9.2 T/CUMM (4-12)
[2020-04-03 06:49] LABS: Calcium 7.2 MG/DL (8.5-10.1); Osmolality,Calculated 298.3 MOS/KG (273-304)
[2020-04-03] MEDS ORDERED: DEXTROSE 5% NACL 0.45% 1,000 ML IV SCH (08:00)
[2020-04-03] MEDS: INSULIN LISPRO 100 UNIT/ML SUBCUT SCH ×4 (08:09→21:05)
[2020-04-03] MEDS: PANTOPRAZOLE 40 MG VIAL IV SCH (09:37)
[2020-04-03] MEDS: CLOPIDOGREL 75 MG TABLET PO SCH (09:47)
[2020-04-03] MEDS: ASPIRIN CHEW 81 MG TABLET PO SCH (09:47)
[2020-04-03] MEDS: FUROSEMIDE 40 MG TABLET PO SCH (09:47)
[2020-04-03] MEDS: INSULIN GLARGINE 100 UNIT/ML SUBCUT SCH (09:48)
[2020-04-03] MEDS: METOPROLOL SUCCINATE XL 25 MG TABLET PO SCH ×2 (09:48→21:05)
[2020-04-03] MEDS: GABAPENTIN 300 MG CAPSULE PO SCH ×2 (09:48→21:05)
[2020-04-03] MEDS: ASCORBIC ACID 500 MG TABLET PO SCH (09:48)
[2020-04-03] MEDS: ENOXAPARIN 40 MG/0.4 ML SYRINGE SUBCUT SCH (09:48)
[2020-04-03] MEDS: LOSARTAN 25 MG TABLET PO SCH (09:48)
[2020-04-03] MEDS ORDERED: POTASSIUM CHLORIDE 20 MEQ TABLET PO ONE (10:15)
[2020-04-03] MEDS ORDERED: MAGNESIUM SULF RIDER 2 GM in PREMIX 1 EACH IV ONE (10:15)
[2020-04-03] MEDS ORDERED: FUROSEMIDE 40 MG/4 ML VIAL IV ONE (14:00)
[2020-04-03] MEDS: ROSUVASTATIN 20 MG TABLET PO SCH (21:06)
[2020-04-04] MEDS: ALBUTEROL 0.63 MG/3 ML NEB RESP TX SCH ×3 (00:25→19:33)
[2020-04-04 09:20] LABS: Eosinophils # 0.2 10*3/uL (0.0-0.87); Eosinophils % 1.7 % (0.00-10.9); Hematocrit 26.2 VOL% (35.7-47.0); Hemoglobin 9.2 GM/DL (12.0-16.0); Immature Granulocytes % 0.7 %; Immature Granulocytes Absolute 0.06 #; Lymphocytes # 1.9 10*3/uL (1.4-4.0); Lymphocytes % 21.1 % (21.3-54.2); Mean Corpuscular HGB Conc 35.1 GM/DL (32-36); Mean Corpuscular Volume 82.1 FL (87-102); Mean Platelet Volume 10.7 FL (9.6-12.0); Monocytes % 3.5 % (1.7-12.7); Platelet Count 206 T/CUMM (130-400); Red Blood Count 3.19 MC/CUMM (3.8-5.5); Red Cell Distribution Width 17.2 % (9.3-17.3)
[2020-04-04] MEDS: INSULIN LISPRO 100 UNIT/ML SUBCUT SCH ×4 (09:25→20:41)
[2020-04-04] MEDS: INSULIN GLARGINE 100 UNIT/ML SUBCUT SCH (09:26)
[2020-04-04] MEDS: ENOXAPARIN 40 MG/0.4 ML SYRINGE SUBCUT SCH (09:26)
[2020-04-04] MEDS: PANTOPRAZOLE 40 MG TABLET PO SCH (09:27)
[2020-04-04] MEDS: METOPROLOL SUCCINATE XL 25 MG TABLET PO SCH ×2 (09:27→20:43)
[2020-04-04] MEDS: CLOPIDOGREL 75 MG TABLET PO SCH (09:27)
[2020-04-04] MEDS: ASPIRIN CHEW 81 MG TABLET PO SCH (09:27)
[2020-04-04] MEDS: LOSARTAN 25 MG TABLET PO SCH (09:27)
[2020-04-04] MEDS: ASCORBIC ACID 500 MG TABLET PO SCH (09:28)
[2020-04-04] MEDS: GABAPENTIN 300 MG CAPSULE PO SCH ×2 (09:28→20:43)
[2020-04-04] MEDS: FUROSEMIDE 40 MG TABLET PO SCH (09:33)
[2020-04-04 09:42] LABS: Calcium 7.3 MG/DL (8.5-10.1); Osmolality,Calculated 295.4 MOS/KG (273-304)
[2020-04-04] MEDS: FUROSEMIDE 40 MG/4 ML VIAL IV SCH (16:30)
[2020-04-04] MEDS: MAGNESIUM SULF RIDER 2 GM in PREMIX 1 EACH IV PRN (16:50)
[2020-04-04] MEDS: ROSUVASTATIN 20 MG TABLET PO SCH (20:43)
[2020-04-05] MEDS: ALBUTEROL 0.63 MG/3 ML NEB RESP TX SCH ×4 (01:08→19:17)
[2020-04-05 05:04] LABS: Basophils % 0.1 % (0.0-0.8); Eosinophils # 0.1 10*3/uL (0.0-0.87); Hematocrit 24.1 VOL% (35.7-47.0); Hemoglobin 8.3 GM/DL (12.0-16.0); Immature Granulocytes % 0.6 %; Immature Granulocytes Absolute 0.04 #; Lymphocytes # 1.6 10*3/uL (1.4-4.0); Lymphocytes % 22.4 % (21.3-54.2); Mean Corpuscular HGB Conc 34.4 GM/DL (32-36); Mean Corpuscular Volume 83.1 FL (87-102); Mean Platelet Volume 10.9 FL (9.6-12.0); Monocytes % 3.4 % (1.7-12.7); Neutrophils % 71.5 % (38.7-73.9); Platelet Count 221 T/CUMM (130-400); Red Cell Distribution Width 17.4 % (9.3-17.3); White Blood Count 7.2 T/CUMM (4-12)
[2020-04-05 05:20] LABS: Calcium 7.5 MG/DL (8.5-10.1); Osmolality,Calculated 289.7 MOS/KG (273-304)
[2020-04-05] MEDS: INSULIN LISPRO 100 UNIT/ML SUBCUT SCH ×4 (08:49→20:51)
[2020-04-05] MEDS: ENOXAPARIN 40 MG/0.4 ML SYRINGE SUBCUT SCH (09:48)
[2020-04-05] MEDS: INSULIN GLARGINE 100 UNIT/ML SUBCUT SCH (09:48)
[2020-04-05] MEDS: ASPIRIN CHEW 81 MG TABLET PO SCH (09:49)
[2020-04-05] MEDS: FUROSEMIDE 40 MG/4 ML VIAL IV SCH ×2 (09:49→16:13)
[2020-04-05] MEDS: PANTOPRAZOLE 40 MG TABLET PO SCH (09:50)
[2020-04-05] MEDS: THIAMINE 100 MG TABLET PO SCH (09:50)
[2020-04-05] MEDS: METOPROLOL SUCCINATE XL 25 MG TABLET PO SCH ×2 (09:50→20:51)
[2020-04-05] MEDS: ASCORBIC ACID 500 MG TABLET PO SCH (09:50)
[2020-04-05] MEDS: LOSARTAN 25 MG TABLET PO SCH (09:50)
[2020-04-05] MEDS: GABAPENTIN 300 MG CAPSULE PO SCH ×2 (09:50→20:51)
[2020-04-05] MEDS: CLOPIDOGREL 75 MG TABLET PO SCH (09:51)
[2020-04-05] MEDS: MAGNESIUM SULF RIDER 2 GM in PREMIX 1 EACH IV PRN (09:51)
[2020-04-05] MEDS ORDERED: POTASSIUM CHLORIDE RIDER 20 MEQ in PREMIX 1 EACH IV PRN (10:10)
[2020-04-05] MEDS: POTASSIUM CHLORIDE RIDER 10 MEQ in PREMIX 1 EACH IV PRN ×5 (11:13→16:12)
[2020-04-05] MEDS: LACTULOSE 20 GM/30 ML UDCUP PO PRN (11:13)
[2020-04-05] MEDS: ROSUVASTATIN 20 MG TABLET PO SCH (20:51)
[2020-04-06] MEDS: ALBUTEROL 0.63 MG/3 ML NEB RESP TX SCH ×2 (01:05→07:37)
[2020-04-06 05:46] LABS: Basophils % 0.2 % (0.0-0.8); Eosinophils # 0.2 10*3/uL (0.0-0.87); Eosinophils % 2.3 % (0.00-10.9); Hematocrit 24.1 VOL% (35.7-47.0); Hemoglobin 8.6 GM/DL (12.0-16.0); Immature Granulocytes % 0.6 %; Immature Granulocytes Absolute 0.04 #; Lymphocytes # 1.4 10*3/uL (1.4-4.0); Lymphocytes % 22.3 % (21.3-54.2); Mean Corpuscular HGB Conc 35.7 GM/DL (32-36); Monocytes % 3.6 % (1.7-12.7); Platelet Count 246 T/CUMM (130-400); Red Blood Count 2.94 MC/CUMM (3.8-5.5); Red Cell Distribution Width 17.9 % (9.3-17.3); White Blood Count 6.4 T/CUMM (4-12)
[2020-04-06 06:16] LABS: Calcium 7.8 MG/DL (8.5-10.1)
[2020-04-06] MEDS ORDERED: POTASSIUM CHLORIDE 20 MEQ TABLET PO PRN (07:12)
[2020-04-06] MEDS ORDERED: POTASSIUM CHLORIDE 20 MEQ TABLET PO ONE (07:30)
[2020-04-06] MEDS: INSULIN LISPRO 100 UNIT/ML SUBCUT SCH (07:47)
[2020-04-06 08:10] VITALS: BP 112/48
[2020-04-06] MEDS ORDERED: FUROSEMIDE 80 MG TABLET PO SCH (09:00)
[2020-04-06] MEDS: METOPROLOL SUCCINATE XL 25 MG TABLET PO SCH (09:09)
[2020-04-06] MEDS: CLOPIDOGREL 75 MG TABLET PO SCH (09:09)
[2020-04-06] MEDS: ASCORBIC ACID 500 MG TABLET PO SCH (09:09)
[2020-04-06] MEDS: ASPIRIN CHEW 81 MG TABLET PO SCH (09:10)
[2020-04-06] MEDS: GABAPENTIN 300 MG CAPSULE PO SCH (09:10)
[2020-04-06] MEDS: LOSARTAN 25 MG TABLET PO SCH (09:10)
[2020-04-06] MEDS: INSULIN GLARGINE 100 UNIT/ML SUBCUT SCH (09:11)
[2020-04-06] MEDS: ENOXAPARIN 40 MG/0.4 ML SYRINGE SUBCUT SCH (09:11)
[2020-04-06] MEDS: LACTULOSE 20 GM/30 ML UDCUP PO PRN (09:12)
[2020-04-06] MEDS: THIAMINE 100 MG TABLET PO SCH (09:14)
[2020-04-06] MEDS: PANTOPRAZOLE 40 MG TABLET PO SCH (09:14)
== END 2020-04-06 11:30 | disposition swing bed (61) | DRG 870 ==
LOC: EDBD → EDUNIT# → N.ED 10:18 → SUATTDRO 14:58 → N.EDINP 14:58 → N.3E 17:43 → N.ICU 17:58 → N.5E 03-24 09:32 → N.ICU 03-24 16:50 → N.TELEN 03-31 15:40
PROVIDERS: ADMIT Internal Medicine; ATTEND Internal Medicine